=== PATIENT | female | born 1955 | race Caucasian/White ===

== ENCOUNTER → 2016-11-21 | Outpatient (CLI) | payer OTHER ==
--- NOTE | 2016-12-05 20:30 | Diagnostic Imaging Report ---
INDICATION: Screening. The current study was also evaluated with a Computer Aided Detection (CAD) system. Comparison made with prior examination of 03/03/2016. FINDINGS: There is a moderate amount of residual fibroglandular tissue bilaterally. There is no dominant mass, spiculated lesion, or suspicious calcification identified. IMPRESSION: Negative. ACR BI-RADS Category 1: Negative. Result letter will be mailed to the patient. Note: At least 10% of breast cancer is not imaged by mammography. Dictated by: Dictated on workstation # [id number]
== END ==
LOC: RAD 14:35
PROVIDERS: ATTEND Nurse Practitioner Family
DX: Z12.31 Encounter for screening mammogram for malignant neoplasm of breast (principal)
CPT/HCPCS: 77067

== ENCOUNTER → 2018-03-01 | Outpatient (CLI) | payer OTHER ==
--- NOTE | 2018-03-01 18:36 | Diagnostic Imaging Report ---
INDICATION: Routine screening. Comparison is made with prior mammogram from 11/21/2016 and 03/03/2016. 2-D and 3-D bilateral screening mammography was performed with CAD. The current study was also evaluated with a Computer Aided Detection (CAD) system. FINDINGS: Scattered fibroglandular densities are identified bilaterally. There appears to be a cluster of nodular densities in the outer portion of the left breast at posterior depth. This may represent a cluster of cysts. Additional views and ultrasound are recommended for further evaluation. No other suspicious density is seen. No malignant-appearing microcalcifications are identified. The axillae are unremarkable. IMPRESSION: Left breast density. Additional views and ultrasound are recommended for further evaluation. ACR BI-RADS Category 0: Incomplete. (Needs additional imaging evaluation). Result letter will be mailed to the patient. Note: At least 10% of breast cancer is not imaged by mammography. Dictated by: Dictated on workstation # [id number]
== END ==
LOC: RAD 14:12
PROVIDERS: ATTEND Nurse Practitioner Family
DX: Z02.71 Encounter for disability determination (principal); Z12.31 Encounter for screening mammogram for malignant neoplasm of breast
CPT/HCPCS: 77067

== ENCOUNTER → 2018-04-05 | Outpatient (CLI) | payer OTHER ==
--- NOTE | 2018-04-05 10:27 | Diagnostic Imaging Report ---
INDICATION: Left breast density. Study is performed for further evaluation. Correlation is made with the diagnostic mammogram earlier the same day as well as the screening mammogram from 03/01/2018. Sonographic interrogation of the outer left breast was performed. There appears to be a cluster of cysts at the 3 o'clock location of the left breast 6 cm from the nipple. This in aggregate measures 14 x 9 x 12 mm. This does correspond in size and location to the lobulated density noted on recent mammography. No other abnormality is identified. IMPRESSION: BI-RADS category 3 Cluster of cysts 3 o'clock location left breast corresponding to the mammographic density. This has benign features. Even so, followup left mammogram and left breast ultrasound in 6 months is recommended to confirm stability. Dictated by: Dictated on workstation # [id number]
--- NOTE | 2018-04-05 10:35 | Diagnostic Imaging Report ---
INDICATION: Left breast density. Patient presents for additional views. Correlation is made with recent screening study from 03/01/2018. 2-D and 3-D unilateral left diagnostic mammography was performed. The lobulated density in the far posterior outer left breast persists with additional views. This may represent a cluster of cysts. Further evaluation with ultrasound is recommended. No associated calcifications are seen. IMPRESSION: BI-RADS zero Persistent lobulated density in the outer left breast approximately 7-8 cm from the nipple. Further evaluation with ultrasound is recommended. ACR BI-RADS Category 0: Incomplete. (Needs additional imaging evaluation). Result letter will be mailed to the patient. Note: At least 10% of breast cancer is not imaged by mammography. Dictated by: Dictated on workstation # [id number]
== END ==
LOC: RAD 08:43
PROVIDERS: ATTEND Nurse Practitioner Family
DX: N60.02 Solitary cyst of left breast (principal)
CPT/HCPCS: 76642

== ENCOUNTER → 2018-09-20 | Outpatient (CLI) | payer OTHER ==
--- NOTE | 2018-09-20 21:57 | Diagnostic Imaging Report ---
INDICATION: Six-month followup left breast mass. Correlation is made with prior ultrasound from 04/05/2018 and diagnostic mammogram from earlier the same day. FINDINGS: Previously noted probable cluster of cysts at the 3 o'clock location of left breast appears much smaller. In aggregate this measures 9 mm x 5 mm x 7 mm compared with 14 mm x 9 mm x 12 mm. No new abnormality is seen. IMPRESSION: Decrease in size of a cluster of cysts at the 3 o'clock location of the left breast. Patient may return to routine screening mammography in February 2019. ACR BI-RADS Category 2: Benign findings. Dictated by: Dictated on workstation # [id number]
--- NOTE | 2018-09-20 22:21 | Diagnostic Imaging Report ---
INDICATION: Six-month followup of left breast density. Correlation is made with prior mammogram from 03/01/2018. 2-D and 3-D unilateral left diagnostic mammography was performed with a Computer Aided Detection (CAD) system. FINDINGS: Scattered fibronodular densities left breast again noted. The lobulated density in the outer posterior left breast appears less prominent on today's study, likely owing to diminution of a cluster of cysts. No new mass is seen. No malignant appearing microcalcifications are identified. IMPRESSION: Decrease in size of lobulated density in the outer left breast. Even so, followup of this area with ultrasound is recommended and will be performed today. ACR BI-RADS Category 0: Incomplete. (Needs additional imaging evaluation). Result letter will be mailed to the patient. Note: At least 10% of breast cancer is not imaged by mammography. Dictated by: Dictated on workstation # [id number]
== END ==
LOC: RAD 09:30
PROVIDERS: ATTEND Nurse Practitioner Family
DX: N63.20 Unspecified lump in the left breast, unspecified quadrant (principal); N60.02 Solitary cyst of left breast
CPT/HCPCS: 76642

== ENCOUNTER → 2020-02-20 | Outpatient (CLI) | payer OTHER ==
--- NOTE | 2020-02-20 19:22 | Diagnostic Imaging Report ---
INDICATION: Screening. At this time there are no current complaints. EXAMINATION: Digital mammogram bilateral screening. COMPARISON: Study was compared to the prior exam of 09/20/2018, 03/01/2018 and 11/21/2016. The current study was also evaluated with a Computer Aided Detection (CAD) system. FINDINGS: The fibroglandular tissue in both breasts is heterogeneously dense. This does limit the sensitivity of this exam. Overall, there does not appear to have been any significant change when compared to the prior study. No primary or secondary sign of malignancy is noted. IMPRESSION: There is no radiographic evidence for malignancy. ACR BI-RADS Category 1: Negative. Result letter will be mailed to the patient. Note: At least 10% of breast cancer is not imaged by mammography. Dictated by: Dictated on workstation # [id number]
== END ==
LOC: RAD 10:31
PROVIDERS: ATTEND Nurse Practitioner Family
DX: Z12.31 Encounter for screening mammogram for malignant neoplasm of breast (principal)
CPT/HCPCS: 77063; 77067